=== PATIENT | male | born 1960 | race Two or more races ===

== ENCOUNTER 2024-09-04 10:53 | Emergency (ER) | payer OTHER ==
[~2024-09-04] VITALS: Ht 182.9 cm; Wt 88.5 kg
[2024-09-04] MEDS ORDERED: ORPHENADRINE CITRATE 30 MG/ML AMPUL IM STA (13:46)
[2024-09-04] MEDS ORDERED: KETOROLAC TROMETHAMINE 30 MG VIAL IM STA (13:46)
[2024-09-04] MEDS ORDERED: METHYLPREDNISOLONE SOD SUCC 125 MG VIAL IM STA (13:50)
== END 2024-09-04 15:45 | disposition home or self-care (01) ==
LOC: ER 10:55
DX: M54.32 Sciatica, left side (principal)
CPT/HCPCS: 96372; 99282; J1885; J2360; J3490